=== PATIENT | female | born 1995 | race Caucasian/White ===

== ENCOUNTER 2018-03-16 12:46 | Emergency (ER) | payer OTHER ==
[2018-03-16 12:55] VITALS: BP 121/62; PULSE 102; TEMP 98.6; BMI 43.0
--- NOTE | 2018-03-16 13:09 | PDOC ---
History of Present Illness - General Chief Complaint: Sore Throat Stated Complaint: BLISTER IN MOUTH FEVER Time Seen by Provider: 03/16/18 13:04 History Source: Patient Exam Limitations: No Limitations - History of Present Illness Initial Comments: 03/16/18 13:22 Patient is a 22-year-old female who presents emergency Department with 2 days of sore throat, fever, nausea, vomiting and difficulty swallowing. Patient states that her daughter was recently diagnosed with herpangina and she is concerned she has the same. Took Tylenol at home with little relief of her symptoms. Denies cough, earache, shortness of breath, chest pains, diarrhea and constipation. 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) - Immunization History Td Vaccination: Yes TDAP Vaccination: Yes Immunization Up to Date: Yes - Suicide/Smoking/Psychosocial Hx Smoking Status: No Smoking History: Never smoked Number of Cigarettes Smoked Daily: 0 Hx Alcohol Use: No Drug/Substance Use Hx: No Substance Use Type: None Review of Systems - Review of Systems Able to Perform ROS?: Yes Comments:: 03/16/18 13:08 CONSTITUTIONAL: Present: Fever Absent: chills, diaphoresis, generalized weakness, malaise, loss of appetite HEENT: Present: Throat pain, difficulty swallowing, congestion Absent: rhinorrhea, throat swelling, mouth swelling, ear pain, eye pain, visual Changes CARDIOVASCULAR: Absent: chest pain, loss of consciousness, palpitations, irregular heart rate, peripheral edema RESPIRATORY: Absent: cough, shortness of breath, dyspnea with exertion, orthopnea, wheezing, stridor, hemoptysis GASTROINTESTINAL: Present: nausea, vomiting Absent: abdominal pain, abdominal distension, nausea, vomiting, diarrhea, constipation, melena, hematochezia SKIN: Absent: rash, itching, pallor NEUROLOGIC: Absent: headache, focal weakness or paresthesias, dizziness, unsteady gait, seizure, mental status changes, bladder or bowel incontinence Is the patient limited Turkish proficient: No *Physical Exam - Vital Signs Last Vital Signs Temp Pulse Resp BP Pulse Ox 98.6 F 102 H 20 121/62 100 03/16/18 12:53 03/16/18 12:53 03/16/18 12:53 03/16/18 12:53 03/16/18 12:53 - Physical Exam Comments: 03/16/18 13:09 GENERAL: Well developed, well nourished. Awake and alert. No acute distress. HEENT: Normocephalic, atraumatic. PERRLA, EOMI. No conjunctival pallor. Sclera are non- icteric. Moist mucous membranes. Oropharynx with 2+ tonsils and erythema. No exudate. Uvula is midline. Ulceration to L lateral aspect of tongue. No other lesions noted. NECK: Supple. Full ROM. No JVD. Carotid pulses 2+ and symmetric, without bruits. No thyromegaly. (+) cervical LAD b/l CARDIOVASCULAR: Regular rate and rhythm. No murmurs, rubs, or gallops. Distal pulses are 2+ and symmetric. PULMONARY: No evidence of respiratory distress. Lungs clear to auscultation bilaterally. No wheezing, rales or rhonchi. ABDOMINAL: Soft. Non-tender. Non-distended. No rebound or guarding. No organomegaly. Normoactive bowel sounds. SKIN: Warm and dry. Normal capillary refill. No rashes. No jaundice. NEUROLOGICAL: Alert, awake, appropriate. Cranial nerves 2-12 intact. No deficits to light touch and temperature in face, upper extremities and lower extremities. No motor deficits in the in face, upper extremities and lower extremities. Normoreflexic in the upper and lower extremities. Normal speech. Toes are down- going bilaterally. Gait is normal without ataxia. Medical Decision Making - Medical Decision Making 03/16/18 13:31 Patient is a 22-year-old female with no past medical history who presents emergency Department with fever, sore throat nausea and vomiting for 2 days. Exam shows erythema and 2+ tonsils. Strep versus herpangitis. Rapid strep sent. Prednisone and Motrin given at this time. *DC/Admit/Observation/Transfer Diagnosis at time of Disposition: Pharyngitis Qualifiers: Pharyngitis/tonsillitis etiology: unspecified etiology Qualified Code(s): J02.9 - Acute pharyngitis, unspecified - Discharge Dispostion Disposition: HOME Condition at time of disposition: Stable Decision to Admit order: No - Prescriptions Prescriptions: Amoxicillin - [Amoxicillin 500mg Capsule -] 500 mg PO BID #14 capsule - Referrals Referrals: Gertrudis Durham MD [Primary Care Provider] - - Patient Instructions Printed Discharge Instructions: DI for Pharyngitis/Tonsillopharyngitis -- Adult Additional Instructions: You have strep throat. This is a bacterial infection. Please take the amoxicillin 500 mg twice a day for one week. Please finish the prescription even if you feel better. You may take Motrin 800 mg every 8 hours as needed for pain or fever. Warm water gargles and cough drops and just may also help her symptoms. Please throw way your toothbrush 3 days into treatment to prevent reinfection. Please follow up with your primary care doctor next week. Return to emergency department if you have worsening pain, difficulty swallowing , changes in your voice, lightheadedness, dizziness, or any changes in your symptoms. - Post Discharge Activity
[2018-03-16] MEDS ORDERED: DEXAMETHASONE LIQUID 0.5 MG/5 ML 240 ML BULK BOTTLE PO ONE (13:22)
[2018-03-16] MEDS ORDERED: IBUPROFEN 400 MG TABLET (FP) PO ONE ×2 (13:22→13:27)
[2018-03-16] MEDS ORDERED: DEXAMETHASONE SOD PHOSPHATE 10 MG/1 ML VIAL ONE (13:27)
== END 2018-03-16 14:52 | disposition home or self-care (01) ==
LOC: JERFT 12:46
DX: J02.9 Acute pharyngitis, unspecified (principal); Z87.09 Personal history of other diseases of the respiratory system; Z86.79 Personal history of other diseases of the circulatory system
CPT/HCPCS: 87070; 87430; 99281-25

== ENCOUNTER 2019-11-28 07:08 | Emergency (ER) | payer OTHER ==
[2019-11-28 07:18] VITALS: BP 137/67; TEMP 99.2; BMI 40.1
--- NOTE | 2019-11-28 07:34 | PDOC ---
History of Present Illness - General Chief Complaint: Respiratory Stated Complaint: FLU SYMPTOMS Time Seen by Provider: 11/28/19 07:21 History Source: Patient Exam Limitations: No Limitations Past History - Past Medical History Allergies/Adverse Reactions: Allergies Allergy/AdvReac Type Severity Reaction Status Date / Time No Known Allergies Allergy Verified 11/28/19 07:18 Home Medications: Ambulatory Orders ASA - 81 mg PO DAILY 10/19/16 Amoxicillin - [Amoxicillin 500mg Capsule -] 500 mg PO BID #14 capsule 03/16/18 Asthma: Yes COPD: No DVT: Yes (BLOOD CLOTS IN BRAIN) - Immunization History Td Vaccination: Yes TDAP Vaccination: Yes Immunization Up to Date: Yes - Psycho Social/Smoking Cessation Hx Smoking Status: No Smoking History: Never smoked Number of Cigarettes Smoked Daily: 0 Hx Alcohol Use: No Drug/Substance Use Hx: No Substance Use Type: None *Physical Exam - Vital Signs Last Vital Signs Temp Pulse Resp BP Pulse Ox 99.2 F 111 H 18 137/67 95 11/28/19 07:13 11/28/19 07:13 11/28/19 07:13 11/28/19 07:13 11/28/19 07:13 - Physical Exam General Appearance: No: Apparent Distress HEENT: positive: Nasal Congestion. negative: Muffled/Hoarse voice, Pharyngeal Erythema, Tonsillar Exudate, Tonsillar Erythema, Rhinorrhea Neck: positive: Supple Respiratory/Chest: positive: Lungs Clear, Normal Breath Sounds. negative: Respiratory Distress Cardiovascular: negative: Murmur Gastrointestinal/Abdominal: positive: Normal Bowel Sounds, Soft. negative: Tender, Distended, Guarding, Rebound Integumentary: positive: Normal Color Neurologic: positive: Alert Medical Decision Making - Medical Decision Making 24 y/o F hx of asthma, meningitis presents with fever, cough, congestion, sore throat, body aches x 3 days. Took Tylenol around 5 AM prior to coming here. Denies sob, cp, abd pain, n/v/d, recent travel, neck stiffness, recent travel. Nephew had flu recently. Likely flu/viral syndrome Patient is past 48 hr window for starting flu treatment Supportive care encouraged 11/28/19 07:31 Discharge - Discharge Information Problems reviewed: Yes Clinical Impression/Diagnosis: Viral URI Condition: Stable Disposition: HOME - Admission No - Additional Discharge Information Prescription Drug Monitoring Program (I-STOP) results: I-STOP not reviewed - Follow up/Referral Referrals: Gertrudis Durham MD [Primary Care Provider] - 2 Days - Patient Discharge Instructions Patient Printed Discharge Instructions: DI for Viral Upper Respiratory Infection -- Adult Additional Instructions: Thank you for choosing [facility]. It was a pleasure taking care of you. You have viral infection Alternate between Tylenol every 4 and Motrin every 6 hours as needed for fever Salt water gargles will help with sore throat Saline spray/Nedi-pot will help with congestion Recommend rest and hydration Follow-up with your doctor in 2 days Return to the Emergency Department if your symptoms worsen or persist or have other concerning symptoms. - Post Discharge Activity Work/Back to School Note: Back to Work
[2019-11-28 07:43] VITALS: PULSE 99
== END 2019-11-28 07:40 | disposition home or self-care (01) ==
LOC: JER 07:08
DX: J06.9 Acute upper respiratory infection, unspecified (principal); B97.89 Other viral agents as the cause of diseases classified elsewhere
CPT/HCPCS: 99281-25

== ENCOUNTER 2020-09-16 12:22 | Emergency (ER) | payer OTHER ==
[2020-09-16 12:29] VITALS: BP 119/65; PULSE 46; BMI 44.4
[2020-09-16] MEDS ORDERED: ACETAMINOPHEN 1000 MG/100 ML VIAL (NON FORMULARY) IVPB ONE (13:47)
[2020-09-16] MEDS ORDERED: SODIUM CHLORIDE 1,000 ML IV STA (13:47)
[2020-09-16] MEDS ORDERED: ONDANSETRON 4 MG/2 ML VIAL IVPUSH ONE (13:47)
[2020-09-16] MEDS ORDERED: ACETAMINOPHEN INJECTION 100 ML IVPB ONE (14:02)
[2020-09-16 14:24] LABS: BASO % 0.8 % (0-2.0); EOS % 0.6 % (0-4.5); HEMATOCRIT 39.8 % (32.4-45.2); HEMOGLOBIN 12.8 GM/dL (10.7-15.3); LYMPH % 33.9 % (8-40); MCH 28.7 pg (25.7-33.7); MCHC 32.1 g/dl (32.0-36.0); MEAN CELL VOLUME 89.2 fl (80-96); MEAN PLT VOLUME 8.8 fl (7.5-11.1); MONO % 5.8 % (3.8-10.2); NEUT % 58.9 % (42.8-82.8); PLATELET COUNT 298 K/MM3 (134-434); RBC 4.45 M/mm3 (3.60-5.2); RDW 14.2 % (11.6-15.6); WHITE BLOOD COUNT 9.8 K/mm3 (4.0-10.0)
[2020-09-16 14:26] LABS: EPI CELLS 20 /uL (0-25.1); HYALINE CASTS 2 /uL (0-3.1); URINE APPEARANCE CLEAR; URINE BACTERIA 502 /uL (0-1359); URINE BILIRUBIN NEGATIVE (NEGATIVE); URINE COLOR YELLOW; URINE GLUCOSE (UA) NEGATIVE (NEGATIVE); URINE KETONE NEGATIVE (NEGATIVE); URINE LEUK ESTERASE 1+ (NEGATIVE); URINE NITRITE NEGATIVE (NEGATIVE); URINE PROTEIN NEGATIVE (NEGATIVE); URINE RBC 49 /uL (0-23.9); URINE UROBILINOGEN 0.2 mg/dL (0.2-1.0); URINE WBC 5 /uL (0-25.8)
[2020-09-16 14:35] LABS: INR 1.09 (0.83-1.09); PROTHROMBIN TIME (PATIENT) 13.1 SEC (9.7-13.0)
[2020-09-16 14:49] LABS: POTASSIUM 4.8 mmol/L (3.5-5.1)
[2020-09-16 14:51] LABS: ALBUMIN 3.1 g/dl (3.4-5.0); CALCIUM 8.9 mg/dL (8.5-10.1)
[2020-09-16 14:54] LABS: CREATININE 0.8 mg/dL (0.55-1.3)
[2020-09-16 14:56] LABS: BILIRUBIN,TOTAL 0.6 mg/dL (0.2-1); TOT PROT 7.2 g/dl (6.4-8.2)
== END 2020-09-16 18:25 | disposition home or self-care (01) ==
LOC: JERFT 12:22
PROC: 3E0333Z Introduction of Anti-inflammatory into Peripheral Vein, Percutaneous Approach (ICD-10-PCS; principal; 2020-09-16)
PROC: 3E033GC Introduction of Other Therapeutic Substance into Peripheral Vein, Percutaneous Approach (ICD-10-PCS; 2020-09-16)
PROC: 3E0337Z Introduction of Electrolytic and Water Balance Substance into Peripheral Vein, Percutaneous Approach (ICD-10-PCS; 2020-09-16)
DX: N30.00 Acute cystitis without hematuria (principal)
CPT/HCPCS: 36415; 74177-TC; 80053; 81003; 83690; 84703; 85025; 85610; 86850; 86900; 86901; 87077; 87086; 87491; 87591; 99285-25; J0131; Q9967

== ENCOUNTER 2020-10-31 13:53 | Emergency (ER) | payer OTHER ==
[2020-10-31 14:01] VITALS: BP 128/61; PULSE 87; TEMP 97.2; BMI 42.3
[2020-10-31] MEDS ORDERED: ACETAMINOPHEN 500 MG TABLET (FP) PO ONE (14:20)
[2020-10-31] MEDS ORDERED: ACETAMINOPHEN 500 MG TABLET (FP) ONE (15:06)
[2020-10-31 16:43] LABS: BASO % 0.2 % (0-2.0); EOS % 0.2 % (0-4.5); HEMATOCRIT 39.4 % (32.4-45.2); HEMOGLOBIN 12.7 GM/dL (10.7-15.3); LYMPH % 24.2 % (8-40); MCH 28.5 pg (25.7-33.7); MCHC 32.2 g/dl (32.0-36.0); MEAN CELL VOLUME 88.6 fl (80-96); MEAN PLT VOLUME 9.1 fl (7.5-11.1); NEUT % 68.4 % (42.8-82.8); PLATELET COUNT 361 K/MM3 (134-434); RBC 4.45 M/mm3 (3.60-5.2); RDW 14.4 % (11.6-15.6); WHITE BLOOD COUNT 9.9 K/mm3 (4.0-10.0)
[2020-10-31 16:50] LABS: INR 0.99 (0.83-1.09); PROTHROMBIN TIME (PATIENT) 12.2 SEC (9.7-13.0)
[2020-10-31 16:53] LABS: ACTIVATED PTT 29.2 SECONDS (25.2-36.5)
[2020-10-31 17:02] LABS: CHLORIDE 108 mmol/L (98-107); SODIUM 140 mmol/L (136-145)
[2020-10-31 17:05] LABS: ALBUMIN 3.2 g/dl (3.4-5.0); ANION GAP 5 MMOL/L (8-16); BLOOD UREA NITROGEN 13.4 mg/dL (7-18); CO2 28 mmol/L (21-32); GLUCOSE,RANDOM 78 mg/dL (74-106)
[2020-10-31 17:09] LABS: BILIRUBIN,TOTAL 0.4 mg/dL (0.2-1); CREATININE 0.7 mg/dL (0.55-1.3); SGOT/AST 11 U/L (15-37); SGPT/ALT 28 U/L (13-61)
[2020-10-31 17:10] LABS: TOT PROT 7.3 g/dl (6.4-8.2)
[2020-10-31 17:11] LABS: ALK PHOS 65 U/L (45-117)
== END 2020-10-31 17:55 | disposition home or self-care (01) ==
LOC: JER 13:53
DX: R07.89 Other chest pain (principal)
CPT/HCPCS: 36415; 80053; 84484; 85025; 85610; 85730; 93005; 93010; 99283-25

== ENCOUNTER 2020-11-16 04:27 | Day surgery (SDC) | payer OTHER ==
[2020-11-10 14:52] VITALS: BMI 41.5
[~2020-11-16 04:27] MED LIST: ACETAMINOPHEN 325 MG TABLET (FP) PO ONE
[2020-11-16] MEDS ORDERED: PROMETHAZINE HCL 25 MG/1 ML VIAL IVPB PRN (13:03)
[2020-11-16] MEDS ORDERED: ONDANSETRON 4 MG/2 ML VIAL IVPUSH PRN (13:03)
[2020-11-16] MEDS ORDERED: oxyCODONE HCL 5 MG TABLET PO PRN (13:03)
[2020-11-16] MEDS ORDERED: PROPOFOL 20 ML ONE ×2 (13:06)
[2020-11-16] MEDS ORDERED: MIDAZOLAM HCL 2 MG/2 ML SINGLE DOSE VIAL ONE ×2 (13:06)
[2020-11-16] MEDS ORDERED: SUCCINYLCHOLINE CHLORIDE 200 MG/10 ML SYRINGE ONE (13:07)
[2020-11-16] MEDS ORDERED: LACTATED RINGERS SOLUTION 1,000 ML IV SCH (13:15)
[2020-11-16] MEDS ORDERED: ACETAMINOPHEN 500 MG TABLET (FP) PO PRN (15:36)
[2020-11-16] MEDS ORDERED: ACETAMINOPHEN 325 MG TABLET (FP) ONE (15:39)
[2020-11-16 16:45] VITALS: BP 133/68; PULSE 56; TEMP 97.8
== END 2020-11-16 17:02 | disposition home or self-care (01) ==
LOC: JASU-SURG 04:27
PROVIDERS: ATTEND Obstetrics & Gynecology
PROC: 0UC98ZZ Extirpation of Matter from Uterus, Via Natural or Artificial Opening Endoscopic (ICD-10-PCS; principal; 2020-11-16 13:00)
DX: T83.89XA Other specified complication of genitourinary prosthetic devices, implants and grafts, initial encounter (principal)
CPT/HCPCS: 81025; 88300-TC; 94760

== ENCOUNTER 2024-06-30 03:14 | Emergency (ER) | payer OTHER ==
[2024-06-30 03:20] VITALS: TEMP 98.4; BMI 31.5
[2024-06-30 04:43] LABS: EPI CELLS 23 /uL (0-25.1); HYALINE CASTS 0 /uL (0-3.1); PH,URINE 7.5 (5.0-8.0); URINE APPEARANCE CLEAR; URINE BACTERIA 190 /uL (0-1359); URINE BILIRUBIN NEGATIVE (NEGATIVE); URINE COLOR YELLOW; URINE GLUCOSE (UA) NEGATIVE (NEGATIVE); URINE KETONE TRACE (NEGATIVE); URINE LEUK ESTERASE TRACE (NEGATIVE); URINE NITRITE NEGATIVE (NEGATIVE); URINE PROTEIN NEGATIVE (NEGATIVE); URINE RBC 47 /uL (0-23.9); URINE WBC 13 /uL (0-25.8)
[2024-06-30 04:51] LABS: BASO % 0.6 % (0-2.0); EOS % 1.5 % (0-4.5); HEMOGLOBIN 11.9 GM/dL (10.7-15.3); MCH 30.6 pg (25.7-33.7); MCHC 33.9 g/dl (32.0-36.0); MEAN CELL VOLUME 90.3 fl (80-96); MEAN PLT VOLUME 8.2 fl (7.5-11.1); MONO % 9.5 % (3.8-10.2); NEUT % 54.4 % (42.8-82.8); PLATELET COUNT 254 10^3/uL (134-434); RBC 3.88 M/mm3 (3.60-5.2); WHITE BLOOD COUNT 7.8 K/mm3 (4.0-10.0)
[2024-06-30 04:56] LABS: INR 0.93 (0.83-1.09); PROTHROMBIN TIME (PATIENT) 10.7 SEC (9.7-13.0)
[2024-06-30 04:59] LABS: ACTIVATED PTT 30.6 SECONDS (25.2-36.5)
[2024-06-30 05:29] LABS: POTASSIUM 4.1 mmol/L (3.5-5.1)
[2024-06-30 05:31] LABS: CALCIUM 8.5 mg/dL (8.5-10.1)
[2024-06-30 05:32] LABS: ALBUMIN 3.2 g/dl (3.4-5.0); BLOOD UREA NITROGEN 11.5 mg/dL (7-18)
[2024-06-30 05:35] LABS: CREATININE 0.8 mg/dL (0.55-1.3)
[2024-06-30 05:37] LABS: BILIRUBIN,TOTAL 0.3 mg/dL (0.2-1); TOT PROT 6.7 g/dl (6.4-8.2)
[2024-06-30] MEDS: CEFTRIAXONE 1,000 MG in DEXTROSE 5%-WATER - 50 ML IVPB ONE (06:39)
[2024-06-30] MEDS ORDERED: morphine SULFATE 4 MG/ML VIAL ONE (10:52)
[2024-06-30] MEDS: morphine CARPU-JECT 4 MG/1 ML DISP.SYRIN IVPUSH ONE (11:07)
[2024-06-30 11:11] VITALS: BP 126/65; PULSE 72; RESP 15
== END 2024-06-30 12:00 | disposition home or self-care (01) ==
LOC: JER 03:14
PROC: 3E033NZ Introduction of Analgesics, Hypnotics, Sedatives into Peripheral Vein, Percutaneous Approach (ICD-10-PCS; principal; 2024-06-30)
DX: N93.9 Abnormal uterine and vaginal bleeding, unspecified (principal); N83.201 Unspecified ovarian cyst, right side; R10.11 Right upper quadrant pain; R10.31 Right lower quadrant pain
CPT/HCPCS: 36415; 74177-TC; 76830-TC; 80053; 81003; 84702; 84703; 85025; 85610; 85730; 86850; 86900; 86901; 87070; 87077; 87081; 87086; 87205; 87491; 87591; 87661; 99285-25; Q9967